=== PATIENT | male | born 1975 | race Caucasian/White ===

== ENCOUNTER 2020-09-19 09:14 | Outpatient (CLI) | payer OTHER, SELFPAY ==
[2020-09-20 14:12] LABS: SARS-CoV-2 RNA PCR Positive
== END 2020-09-19 09:15 | disposition home or self-care (01) ==
LOC: CHSLAB 09:17
PROVIDERS: PCP Internal Medicine; Visit Provider Internal Medicine
DX: U07.1 COVID-19 (principal); R51.9 Headache, unspecified; R68.83 Chills (without fever)
CPT/HCPCS: 87635; C9803; U0003